=== PATIENT | male | born 1995 | race Caucasian/White ===

== ENCOUNTER 2018-09-03 11:47 | Emergency (ER) | payer SELFPAY ==
[~2018-09-03] VITALS: Ht 182.9 cm; Wt 99.8 kg
[~2018-09-03 11:47] MED LIST: CEPH500 PO; IBUP600 PO; PRED10 PO; Prednisone20 MG PO
[2018-09-03] MEDS ORDERED: Flonase 0.05% N16 GM (12:07)
[2018-09-03] MEDS ORDERED: Sudogest30 MG PO (12:07)
[2018-09-03] MEDS ORDERED: Cheratussin AC118 ML PO (12:14)
== END 2018-09-03 12:30 | disposition home or self-care (01) ==
LOC: ER 11:47
DX: J02.9 Acute pharyngitis, unspecified (principal); J32.9 Chronic sinusitis, unspecified; F17.200 Nicotine dependence, unspecified, uncomplicated
CPT/HCPCS: 87081; 87147; 87430; 99283; J1100

== ENCOUNTER 2022-07-27 17:38 | Emergency (ER) | payer OTHER ==
[~2022-07-27] VITALS: Ht 182.9 cm; Wt 113.4 kg
[~2022-07-27 17:38] MED LIST changes: +Cheratussin AC118 ML PO; +Flonase 0.05% N16 GM; +Sudogest30 MG PO
== END 2022-07-27 19:19 | disposition home or self-care (01) ==
LOC: ER 17:38
DX: L30.9 Dermatitis, unspecified (principal); F17.200 Nicotine dependence, unspecified, uncomplicated
CPT/HCPCS: J3301

== ENCOUNTER 2023-05-17 09:10 | Emergency (ER) | payer OTHER ==
[~2023-05-17] VITALS: Ht 182.9 cm; Wt 113.4 kg
[2023-05-17 09:23] VITALS: BP 138/76
[2023-05-17] MEDS ORDERED: Triamcinolone A15 GM TOP (10:20)
== END 2023-05-17 10:33 | disposition home or self-care (01) ==
LOC: ER 09:10
DX: L23.7 Allergic contact dermatitis due to plants, except food (principal); F17.200 Nicotine dependence, unspecified, uncomplicated
CPT/HCPCS: 96372; 99282-25; J3301